=== PATIENT | male | born 1975 | race American Indian/Alaskan Native ===

== ENCOUNTER 2019-11-23 04:45 | Emergency (ER) | payer OTHER ==
[2019-11-23] MEDS ORDERED: FAMOTIDINE 20 MG/2 ML INJ IV ONE (05:08)
[2019-11-23] MEDS ORDERED: MORPHINE 4 MG/1 ML INJ IV ONE (05:08)
[2019-11-23] MEDS ORDERED: ONDANSETRON 4 MG/2 ML INJ IV ONE (05:08)
[2019-11-23] MEDS ORDERED: SODIUM CHLORIDE 0.9% 1000 ML 1,000 ML IV ONE ×2 (05:08→07:13)
[2019-11-23 06:11] LABS: Bacteria,Urine 1+ /HPF (Negative); Bilirubin,Urine NEG (Negative); Blood,Urine LG (Negative); Color,Urine Straw (Yellow); Mucus,Urine FEW /HPF; Protein,Urine <15 mg/dL mg/dL (Negative); Urobilinogen,Urine < 2.0 mg/dL (<2.0)
[2019-11-23 06:15] LABS: RBC,Urine > 182.0 /HPF (0.0-6.0)
--- NOTE | 2019-11-23 06:16 | Emergency Department Report ---
ED Abdominal Pain HPI - General Chief Complaint: Abdominal Pain Stated Complaint: ABD PAIN/SOB Source: patient Mode of arrival: Ambulatory Limitations: No Limitations - History of Present Illness Initial Comments: Patient is a 44-year-old -Russian male with no past medical history who presents to the ED with complaint of acute onset persistent severe diffuse abdominal pain that radiates to the right lower quadrant area with intractable nausea and vomiting for the last 4 hours. Patient states that the pain has worsened in the last 2 hours and describes the pain as crampy, sharp and constant since onset, and that it radiates to the right lower quadrant area. Patient states that he has not been able to keep anything down since the onset of nausea and vomiting 4 hours ago and has had multiple vomiting episodes. Patient denies fever, chills, dizziness, syncope, diarrhea, dysuria, testicular pain, urinary frequency and urgency, hematuria, chest pain or shortness of breath, sore throat, headache, change in vision or palpitations. MD Complaint: abdominal pain, other (nausea and vomiting) -: Sudden, hour(s) (4) Location: diffuse, RLQ Radiation: RLQ Migration to: no migration Severity scale (0 -10): 8 Quality: cramping, aching, sharp Consistency: constant Improves With: nothing Worsens With: nothing Associated Symptoms: denies other symptoms, nausea, vomiting. denies: diarrhea, fever, constipation, hematemesis, hematochezia, melena, hematuria, syncope, other - Related Data Previous Rx's Medication Instructions Recorded Last Taken Type Ciprofloxacin HCl [Ciprofloxacin 500 mg PO Q12HR #20 tab 11/23/19 Unknown Rx TAB] Ketorolac [Toradol] 10 mg PO Q8H PRN #20 tablet 11/23/19 Unknown Rx Ondansetron [Zofran Odt] 4 mg PO Q6HR PRN #24 tab.rapdis 11/23/19 Unknown Rx Oxycodone HCl/Acetaminophen 1 each PO Q6HR PRN #12 tablet 11/23/19 Unknown Rx [Percocet 7.5/325 mg] Tamsulosin [Flomax] 0.4 mg PO QDAY #10 cap 11/23/19 Unknown Rx Allergies Allergy/AdvReac Type Severity Reaction Status Date / Time No Known Allergies Allergy Unverified 11/23/19 05:02 ED Review of Systems ROS: Stated complaint: ABD PAIN/SOB Other details as noted in HPI Constitutional: denies: chills, fever Eyes: denies: eye pain, eye discharge, vision change ENT: denies: ear pain, throat pain Respiratory: denies: cough, shortness of breath, wheezing Cardiovascular: denies: chest pain, palpitations Endocrine: no symptoms reported Gastrointestinal: abdominal pain, nausea, vomiting. denies: diarrhea Genitourinary: denies: urgency, dysuria Musculoskeletal: denies: back pain, joint swelling, arthralgia Skin: denies: rash, lesions Neurological: denies: headache, weakness, paresthesias Psychiatric: denies: anxiety, depression Hematological/Lymphatic: denies: easy bleeding, easy bruising ED Past Medical Hx - Past Medical History Previous Medical History?: Yes Hx Hypertension: Yes - Surgical History Past Surgical History?: No - Social History Smoking Status: Current Every Day Smoker Substance Use Type: Alcohol - Medications Home Medications: Home Medications Medication Instructions Recorded Confirmed Last Taken Type Ciprofloxacin HCl [Ciprofloxacin 500 mg PO Q12HR #20 tab 11/23/19 Unknown Rx TAB] Ketorolac [Toradol] 10 mg PO Q8H PRN #20 tablet 11/23/19 Unknown Rx Ondansetron [Zofran Odt] 4 mg PO Q6HR PRN #24 tab.rapdis 11/23/19 Unknown Rx Oxycodone HCl/Acetaminophen 1 each PO Q6HR PRN #12 tablet 11/23/19 Unknown Rx [Percocet 7.5/325 mg] Tamsulosin [Flomax] 0.4 mg PO QDAY #10 cap 11/23/19 Unknown Rx ED Physical Exam - General Limitations: No Limitations General appearance: alert, in no apparent distress - Head Head exam: Present: atraumatic, normocephalic, normal inspection - Eye Eye exam: Present: normal appearance, PERRL, EOMI Pupils: Present: normal accommodation - ENT ENT exam: Present: normal exam, normal orophraynx, mucous membranes moist, TM's normal bilaterally, normal external ear exam - Neck Neck exam: Present: normal inspection, full ROM. Absent: tenderness - Respiratory Respiratory exam: Present: normal lung sounds bilaterally. Absent: respiratory distress, wheezes, rales, stridor, chest wall tenderness, accessory muscle use, decreased breath sounds, prolonged expiratory - Cardiovascular Cardiovascular Exam: Present: regular rate, normal rhythm, normal heart sounds. Absent: systolic murmur, diastolic murmur, rubs, gallop - GI/Abdominal GI/Abdominal exam: Present: soft, tenderness (Palpable right lower quadrant tenderness, no guarding or rebound), normal bowel sounds. Absent: guarding, rebound, hyperactive bowel sounds, hypoactive bowel sounds - Extremities Exam Extremities exam: Present: normal inspection, full ROM, normal capillary refill - Back Exam Back exam: Present: normal inspection, full ROM. Absent: tenderness, CVA tenderness (R), CVA tenderness (L), muscle spasm, paraspinal tenderness, vertebral tenderness - Neurological Exam Neurological exam: Present: alert, oriented X3, CN II-XII intact, normal gait, reflexes normal - Psychiatric Psychiatric exam: Present: normal affect, normal mood - Skin Skin exam: Present: warm, dry, intact, normal color. Absent: rash ED Course Vital Signs 11/23/19 04:56 Temperature 98.5 F Pulse Rate 78 Respiratory 20 Rate Blood Pressure 149/89 O2 Sat by Pulse 100 Oximetry ED Medical Decision Making - Lab Data Result diagrams: 11/23/19 05:48 11/23/19 05:48 - Radiology Data Radiology results: report reviewed, image reviewed Findings [facility] [address] [place] [address] Cat Scan Report Signed Patient: NICO WONG MR#: [id number] : 1975 Acct:[id number] Age/Sex: 44 / M ADM Date: 11/23/19 Loc: ED Attending Dr: Ordering Physician: NICHOLAS GARCIA Date of Service: 11/23/19 Procedure(s): CT abdomen pelvis w con Accession Number(s): [id number] cc: NICHOLAS GARCIA CT OF THE ABDOMEN AND PELVIS WITH INTRAVENOUS CONTRAST INDICATION / CLINICAL INFORMATION: Right lower quadrant pain with nausea and vomiting. TECHNIQUE: The patient received 100 cc Omnipaque [address] scans at this location are performed using CT dose reduction for ALARA by means of automated exposure control. COMPARISON: None available. FINDINGS: ABDOMEN: The right nephrogram is significantly delayed. There is a moderate amount of right perinephric fluid. There is mild right pelvocaliectasis and ureterectasis. A 4 mm calculus is present in the right ureter at the L3-4 level on axial image #95. There is a 2 to 3 mm nonobstructive calculus in the right mid kidney. The liver, spleen, gallbladder, bile ducts, pancreas, adrenal glands and bowel are normal. No adenopathy is seen. The lung bases are clear. PELVIS: The distal ureters, urinary bladder and prostate gland are normal. A normal appendix is present and there is no evidence of diverticulitis. No abnormal mass or fluid collection is seen. I do not identify a hernia. No acute osseous abnormality is identified. IMPRESSION: 1. 4 mm calculus in the right ureter at the L3-4 level is causing mild hydronephrosis. 2. Small nonobstructive right renal calculus. Signer Name: Yuniel Patel MD Signed: 11/23/2019 7:04 AM Workstation Name: [id number] Transcribed By: RT Dictated By: Yuniel Patel MD Electronically Authenticated By: Yuniel Patel MD Signed Date/Time: 11/23/19703 DD/ 9 TD/TT: - Medical Decision Making This is a 44-year-old -Russian male with no past medical history who presented to the ED with complaint of acute onset persistent severe diffuse abdominal pain that radiates to the right lower quadrant area with intractable nausea and vomiting for 4 hours. In the ED, patient is alert and oriented x3 and is not in distress with normal vital signs. Patient was treated for nausea and vomiting, also treated with antacids and pain medications. Lab test results were reviewed and showed acute leukocytosis of 14,400 and urinalysis showed significant hematuria. The rest of the lab test results are unremarkable. Abdomen pelvis CT scan with contrast shows a 4 mm calculus in the right ureter at the L3-4 level causing mild hydronephrosis. There is also small nonobstructive right renal calculus. On reevaluation, patient's pain and nausea and vomiting is well controlled with medications. Patient was discharged home on pain medications, antiemetics, Flomax and also given a referral to the urologist on-call Dr. Torres for follow-up. Patient was advised return to the ED immediately if symptoms get worse. - Differential Diagnosis Appendicitis; gastroenteritis; Cholecystitis; Pancreatitis; kidney stones Critical care attestation.: If time is entered above; I have spent that time in minutes in the direct care of this critically ill patient, excluding procedure time. ED Disposition Clinical Impression: Abdominal pain in male, Nausea and vomiting in adult patient, Kidney stone on right side Disposition: TO HOME OR SELFCARE Is pt being admited?: No Does the pt Need Aspirin: No Condition: Stable Instructions: Kidney Stones (ED), Acute Nausea and Vomiting (ED), Abdominal Pain (ED) Additional Instructions: Take medication with food, drink plenty of fluids, and follow up with the Urologist Dr. Torres as advised. Return to the ED immediately if symptoms get worse. Prescriptions: Ciprofloxacin HCl [Ciprofloxacin TAB] 500 mg PO Q12HR #20 tab Tamsulosin [Flomax] 0.4 mg PO QDAY #10 cap Oxycodone HCl/Acetaminophen [Percocet 7.5/325 mg] 1 each PO Q6HR PRN #12 tablet PRN Reason: Pain Ketorolac [Toradol] 10 mg PO Q8H PRN #20 tablet PRN Reason: Pain Ondansetron [Zofran Odt] 4 mg PO Q6HR PRN #24 tab.rapdis PRN Reason: Nausea Referrals: GERDA TORRES MD [Staff Physician] - 3-5 Days Time of Disposition: 07:16 Print Language: MOHAWK
[2019-11-23 06:26] LABS: Alanine Aminotransferase 47 units/L (7-56); Albumin 3.8 g/dL (3.9-5); BUN/Creatinine Ratio 12; Blood Urea Nitrogen 13 mg/dL (9-20); Calcium 8.7 mg/dL (8.4-10.2); Hemolysis Index 13; Mean Corpuscular HGB Conc 37 % (32-34); Mean Corpuscular Volume 90 fl (84-94); Red Blood Count 4.19 M/mm3 (3.65-5.03); Red Cell Distribution Width 14.4 % (13.2-15.2)
[2019-11-23 06:28] LABS: Hematocrit 37.7 % (35.5-45.6); Platelet Count 182 K/mm3 (140-440)
[2019-11-23 07:00] LABS: Basophils % (Manual) 0 % (0.0-1.8); Total Cells Counted 100
[2019-11-23 07:01] LABS: Platelet Estimate Consistent w Auto; Target Cells Few
--- NOTE | 2019-11-23 07:08 | Cat Scan Report ---
CT OF THE ABDOMEN AND PELVIS WITH INTRAVENOUS CONTRAST INDICATION / CLINICAL INFORMATION: Right lower quadrant pain with nausea and vomiting. TECHNIQUE: The patient received 100 cc Omnipaque [address] scans at this location are performed using CT dose reduction for ALARA by means of automated exposure control. COMPARISON: None available. FINDINGS: ABDOMEN: The right nephrogram is significantly delayed. There is a moderate amount of right perinephr ic fluid. There is mild right pelvocaliectasis and ureterectasis. A 4 mm calculus is present in the r ight ureter at the L3-4 level on axial image #95. There is a 2 to 3 mm nonobstructive calculus in the right mid kidney. The liver, spleen, gallbladder, bile ducts, pancreas, adrenal glands and bowel are normal. No adenopa thy is seen. The lung bases are clear. PELVIS: The distal ureters, urinary bladder and prostate gland are normal. A normal appendix is prese nt and there is no evidence of diverticulitis. No abnormal mass or fluid collection is seen. I do not identify a hernia. No acute osseous abnormality is identified. IMPRESSION: 1. 4 mm calculus in the right ureter at the L3-4 level is causing mild hydronephrosis. 2. Small nonobstructive right renal calculus. Signer Name: Yuniel Patel MD Signed: 11/23/2019 7:04 AM Workstation Name: [id number]
[2019-11-23] MEDS ORDERED: HYDROmorphone 1 MG/1 ML INJ IV ONE ×2 (07:13→07:40)
[2019-11-23] MEDS ORDERED: METOCLOPRAMIDE 10 MG/2 ML INJ IV ONE (07:13)
[2019-11-23] MEDS ORDERED: diphenhydrAMINE 50 MG/ML VIAL IV ONE (07:13)
[2019-11-23] MEDS ORDERED: KETOROLAC 30 MG/1 ML INJ IV ONE (07:40)
[2019-11-23] MEDS ORDERED: TAMSULOSIN 0.4 MG CAP PO ONE (08:00)
[2019-11-23 10:28] VITALS: BP 138/82
== END 2019-11-23 10:24 | disposition home or self-care (01) ==
LOC: ED 04:45
DX: N20.0 Calculus of kidney (principal); R11.2 Nausea with vomiting, unspecified; I10 Essential (primary) hypertension; F17.200 Nicotine dependence, unspecified, uncomplicated
CPT/HCPCS: 36415; 74177; 80053; 81001; 83690; 85007; 85025; 96361; 96374; 96375; 99284; J1170; J1200; J1885; J2270; J2405; J2765; J7030; Q9967